=== PATIENT | female | born 1965 | race Two or more races ===

== ENCOUNTER 2017-01-22 18:42 | Observation (INO) | payer OTHER ==
[~2017-01-22] VITALS: Ht 162.6 cm; Wt 68.0 kg
[2017-01-22] MEDS ORDERED: SODIUM CHLORIDE 0.9% 1,000 ML IVB ONE (19:13)
[2017-01-22 19:39] LABS: Basophils # (auto) 0 uL; Basophils % (auto) 0.4 % (0.0-2.0); Eosinophils # (auto) 0.1 uL; Eosinophils % (auto) 1.6 % (0.0-7.0); Hemoglobin 13.1 g/dL (12.2-16.2); Lymphocytes # (auto) 1.1 uL; Lymphocytes % (auto) 12.3 % (10.0-50.0); Mean Corpuscular Hemoglobin 27.7 pg (28.0-32.0); Mean Corpuscular Hgb Conc. 32.7 g/dL (32.0-36.0); Mean Platelet Volume 8.6 fL (7.4-10.4); Monocytes # (auto) 0.4 uL; Neutrophils # (auto) 7.1 uL; Neutrophils % (auto) 80.7 % (37.0-80.0); Platelet Count (auto) 274 10^3/uL (140-450); Red Cell Distribution Width 13.3 % (11.6-16.0); White Blood Cell 8.8 10^3/uL (4.4-10.8)
[2017-01-22 19:51] LABS: Albumin 3.8 g/dL (3.4-5.0); Anion Gap 10 (5-15); Aspartate Aminotransferase 20 U/L (15-37); BUN/Creatinine Ratio 23.7; Blood Urea Nitrogen 14 mg/dL (7-18); Calcium 9.1 mg/dL (8.5-10.1); Carbon Dioxide 24 mmol/L (21-32); Chloride 107 mmol/L (98-107); GFR African American 139 mL/min; GFR Non-African American 115 mL/min; Glucose 123 mg/dL (74-106); Magnesium 1.9 mg/dL (1.6-2.6); Potassium 3.7 mmol/L (3.5-5.1); Sodium 141 mmol/L (136-145)
[2017-01-22 19:53] LABS: Acetaminophen < 2.0 ug/mL (10-30); Salicylate < 1.7 mg/dL (2.8-20.0)
[2017-01-22 19:54] LABS: Alkaline Phosphatase 97 U/L (45-117); Bilirubin, Total 0.2 mg/dL (0.2-1.0)
[2017-01-22 21:12] LABS: Urine Bilirubin Negative (Negative); Urine Blood Negative /uL (Negative); Urine Color Yellow (Yellow); Urine Glucose Normal (Normal); Urine Ketone Negative (Negative); Urine Nitrite Negative (Negative); Urine RBC <1 /hpf (0 - 4); Urine Urobilinogen Normal (Negative)
[2017-01-22] MEDS ORDERED: SODIUM CHLORIDE 0.9% 1,000 ML IV ONE (23:30)
[2017-01-23] MEDS ORDERED: HYDROcodone-ACET 5/325MG TAB PO ONE (20:15)
[2017-01-24] MEDS ORDERED: IBUPROFEN 600 MG TAB PO ONE (08:19)
[2017-01-24] MEDS ORDERED: IBUPROFEN 600 MG TAB PO PRN (08:30)
[2017-01-25] MEDS ORDERED: PANTOPRAZOLE 40 MG TAB PO ONE (20:15)
[2017-01-25 21:49] VITALS: BP 121/74
[2017-01-26] MEDS ORDERED: PANTOPRAZOLE 40 MG TAB PO ONE ×2 (12:31→12:45)
== END 2017-01-26 16:53 | disposition home or self-care (01) | DRG 93 ==
LOC: EDUNIT# 18:42 → EDBD 18:42 → ER 18:44 → OVERFLOW 23:01 → ER 01-26 16:53
PROVIDERS: ADMIT Emergency Medicine; ATTEND Emergency Medicine
DX: G92 Toxic encephalopathy (principal); F41.9 Anxiety disorder, unspecified; F32.9 Major depressive disorder, single episode, unspecified; M54.9 Dorsalgia, unspecified; G89.29 Other chronic pain
CPT/HCPCS: 36415; 70450; 80053; 80307; 80320; 80329; 81001; 82962; 83735; 84484; 84702; 85025; 96360; 96361; 99285; G0378; J7030

== ENCOUNTER 2021-08-29 12:33 | Emergency (ER) | payer OTHER ==
[~2021-08-29] VITALS: Ht 162.6 cm; Wt 68.0 kg
[2021-08-29] MEDS ORDERED: PANTOPRAZOLE 40 MG/10 ML VIAL INJ IV ONE (13:00)
[2021-08-29] MEDS ORDERED: MORPHINE SULFATE 4 MG/ML SYR/VIAL IV ONE (13:00)
[2021-08-29] MEDS ORDERED: ONDANSETRON HCL 4 MG/2 ML VIAL IV ONE (13:00)
[2021-08-29] MEDS ORDERED: SODIUM CHLORIDE 0.9% 1,000 ML IVB ONE (13:00)
[2021-08-29 14:53] LABS: Basophils # (auto) 0.1 10 ^3/uL (0-0.2); Basophils % (auto) 0.6 % (0.0-2.0); Eosinophils # (auto) 0.2 10 ^3/uL (0-0.8); Eosinophils % (auto) 1.7 % (0.0-7.0); Hematocrit 40.7 % (36.0-46.0); Hemoglobin 13.6 g/dL (12.2-16.2); Lymphocytes # (auto) 0.5 10 ^3/uL (0.4-5.4); Lymphocytes % (auto) 5.2 % (10.0-50.0); Mean Corpuscular Hemoglobin 30.1 pg (28.0-32.0); Mean Corpuscular Hgb Conc. 33.3 g/dL (32.0-36.0); Mean Corpuscular Volume 90.4 fL (80.0-100.0); Monocytes # (auto) 0.3 10 ^3/uL (0-1.3); Monocytes % (auto) 3.3 % (0.0-12.0); Neutrophils # (auto) 8.3 10 ^3/uL (1.6-8.6); Neutrophils % (auto) 89.2 % (37.0-80.0); Red Cell Distribution Width 13.1 % (11.8-14.3); White Blood Cell 9.3 10^3/uL (4.4-10.8)
[2021-08-29 15:08] LABS: Albumin 3.8 g/dL (3.4-5.0); BUN/Creatinine Ratio 13.7; Calcium 9.1 mg/dL (8.5-10.1); Potassium 4.2 mmol/L (3.5-5.1)
[2021-08-29 15:10] LABS: Bilirubin, Total 0.7 mg/dL (0.2-1.0); Total Protein 7.7 g/dL (6.4-8.2)
[2021-08-29 16:21] LABS: Urine Bacteria FEW /hpf (None Seen); Urine Blood Negative /uL (Negative); Urine Hyaline Cast FEW /lpf (0 - 2); Urine Specific Gravity 1.021 (1.001-1.035); Urine WBC 3 /hpf (0 - 5)
[2021-08-29 22:54] VITALS: BP 140/70
== END 2021-08-29 17:12 | disposition home or self-care (01) ==
LOC: EDBD 12:33 → ER 12:33
DX: K29.70 Gastritis, unspecified, without bleeding (principal); Z20.822 Contact with and (suspected) exposure to COVID-19
CPT/HCPCS: 36415; 76705; 80053; 81001; 82150; 83690; 85025; 87426; 93005